=== PATIENT | male | born 1975 | race Two or more races ===

== ENCOUNTER 2025-01-25 19:53 | Inpatient (IN) | payer OTHER ==
[~2025-01-25] VITALS: Ht 170.2 cm; Wt 121.6 kg
[2025-01-25] MEDS: hydrALAZINE HCL 20 MG/ML VL IV ONE (21:06)
[2025-01-25 21:15] LABS: Basophils # (auto) 0.1 10 ^3/uL (0-0.2); Basophils % (auto) 0.9 % (0.0-2.0); Eosinophils # (auto) 0.3 10 ^3/uL (0-0.8); Eosinophils % (auto) 2.2 % (0.0-7.0); Hematocrit 44.8 % (41.0-53.0); Hemoglobin 14.9 g/dL (13.5-17.5); Lymphocytes # (auto) 2.4 10 ^3/uL (0.4-5.4); Lymphocytes % (auto) 16.4 % (10.0-50.0); Mean Corpuscular Hgb Conc. 33.3 g/dL (32.0-36.0); Mean Corpuscular Volume 84.1 fL (80.0-100.0); Monocytes # (auto) 1.2 10 ^3/uL (0-1.3); Monocytes % (auto) 7.8 % (0.0-12.0); Neutrophils # (auto) 10.8 10 ^3/uL (1.6-8.6); Neutrophils % (auto) 72.7 % (37.0-80.0); Platelet Count (auto) 276 10^3/uL (140-450); Red Blood Cells 5.33 10^6/uL (4.5-5.90); Red Cell Distribution Width 14.1 % (11.8-14.3); White Blood Cell 14.8 10^3/uL (4.4-10.8)
--- NOTE | 2025-01-25 21:17 | ED.PDOC ---
Musculoskeletal HPI Comments 49y M who presents to the ED for chief complaint of extremity pain. Pt states he has been having bilateral lower extremity swelling, shortness of breath and bloating for the past 1x week. Pt in the ED, has noted elevated blood pressure with noted bilateral lower extremity swelling. Pt in the ED, has noted BP of 180/77 and 199/118 on repeat measurement. Pt states he last saw PCP 1x year ago and had called to get refills of his HTN medications which he states ran out today. Pt did state he was complaint with his HTN meds. Pt otherwise is ax0x4 and denies any other symptoms at this time. Chief Complaint: Extremity Swelling Time Seen by MD: 21:13 Reviewed Notes: Medications, Allergies Allergies: Coded Allergies: Albuterol (Verified Allergy, Unknown, 01/25/25) Information Source: Patient Mode of Arrival: Ambulatory Brought in by: self Past Medical History PAST MEDICAL HISTORY: HTN Constitutional: denies: chills, diaphoresis, fatigue, fever, malaise, sweats, weakness, others EENTM: denies: blurred vision, double vision, ear bleeding, ear discharge, ear drainage, ear pain, ear ringing, eye pain, eye redness, hearing loss, mouth pain, mouth swelling, nasal discharge, nose bleeding, nose congestion, nose pain, photophobia, tearing, throat pain, throat swelling, voice changes, others Respiratory: reports: shortness of breath; denies: cough, hemoptysis, orthopnea, SOB at rest, SOB with excertion, stridor, wheezing, others Cardiovascular: denies: chest pain, dizzy spells, diaphoresis, Dyspnea on exertion, edema, irregular heart beat, left arm pain, lightheadedness, palpitations, PND, syncope, others Gastrointestinal: reports: abdomen distended; denies: abdominal pain, blood streaked bowels, constipated, diarrhea, dysphagia, difficulty swallowing, hematemesis, melena, nausea, poor appetite, poor fluid intake, rectal bleeding, rectal pain, vomiting, others Genitourinary: denies: burning, dysuria, flank pain, frequency, hematuria, incontinence, penile discharge, penile sore, pain, testicle pain, testicle swelling, urgency, others Neurological: denies: dizziness, fainting, headache, left sided numbness, left sided weakness, numbness, paresthesia, pre-existing deficit, right sided numbness, right sided weakness, seizure, speech problems, tingling, tremors, weakness, others Musculoskeletal: reports: others (lower extremity swelling); denies: back pain, gout, joint pain, joint swelling, muscle pain, muscle stiffness, neck pain Integumetry: denies: bruises, change in color, change in hair/nails, dryness, laceration, lesions, lumps, rash, wounds, others Allergic/Immunocompromised: denies: Difficulty Healing, Frequent Infections, H nazia, Itching, others Hematologic/Lymphatic: denies: anemia, blood clots, easy bleeding, easy bruising, swollen glands, others Endocrine: denies: excessive hunger, excessive sweating, excessive thirst, excessive urination, flushing, intolerance to cold, intolerance to heat, unexplained weight gain, unexplained weight loss, others Psychiatric: denies: anxiety, bipolar disorder, depression, hopeless, panic disorder, schizophrenia, sleepless, suicidal, others All Other Systems: Reviewed and Negative Physical Exam General Appearance: No Apparent Distress, Normal HEENT: Normal ENT Inspection, Pharynx Normal, TMs Normal Neck: Full Range of Motion, Non-Tender, Normal, Normal Inspection Respiratory: Chest Non-Tender, Lungs Clear, No Accessory Muscle Use, No Respiratory Distress, Normal Breath Sounds Cardiovascular: No Edema, No JVD, No Murmur, No Gallop, Normal Peripheral Pulses, Regular Rate/Rhythm Breast Exam: Deferred Gastrointestinal: Distended Genitalia: Deferred Pelvic: Deferred Rectal: Deferred Extremities: Pedal edema (bilateral lower extermity 2+ pitting edema) Musculoskeletal : Apperance: Normal Neurologic: Alert, order processing clerk II-XII nml as Tested, No Motor Deficits, Normal Affect, Normal Mood, No Sensory Deficits Cerebellar Function: Normal Reflexes: Normal Skin: Dry, Normal Color, Warm Lymphatic: No Adenopathy Was a procedure done? Was a procedure done?: No Differential Diagnosis EXT Differential Diagnosis: N/A Other Differential Diagnosis CHF, DVT, HTN urgency, X-Ray, Labs, Meds, VS Vital Signs Date Time Temp Pulse Resp B/P (MAP) Pulse Ox O2 Delivery O2 Flow Rate FiO2 01/25/25 22:06 97 01/25/25 21:06 199/119 01/25/25 20:20 97.8 104 18 180/117 (138) 100 97.8 Lab Test 01/25/25 22:31 01/25/25 21:04 Range/Units Troponin I High Sensitivity 444 *H 467 *H </=54 ng/L White Blood Count 14.8 H 4.4-10.8 10^3/uL Red Blood Count 5.33 4.5-5.90 10^6/uL Hemoglobin 14.9 13.5-17.5 g/dL Hematocrit 44.8 41.0-53.0 % Mean Corpuscular Volume 84.1 80.0-100.0 fL Mean Corpuscular Hemoglobin 28.0 28.0-32.0 pg Mean Corpuscular Hemoglobin Concent 33.3 32.0-36.0 g/dL Red Cell Distribution Width 14.1 11.8-14.3 % Platelet Count 276 140-450 10^3/uL Mean Platelet Volume 9.4 6.9-10.8 fL Neutrophils (%) (Auto) 72.7 37.0-80.0 % Lymphocytes (%) (Auto) 16.4 10.0-50.0 % Monocytes (%) (Auto) 7.8 0.0-12.0 % Eosinophils (%) (Auto) 2.2 0.0-7.0 % Basophils (%) (Auto) 0.9 0.0-2.0 % Neutrophils # (Auto) 10.8 H 1.6-8.6 10 ^3/uL Lymphocytes # (Auto) 2.4 0.4-5.4 10 ^3/uL Monocytes # (Auto) 1.2 0-1.3 10 ^3/uL Eosinophils # (Auto) 0.3 0-0.8 10 ^3/uL Basophils # (Auto) 0.1 0-0.2 10 ^3/uL Nucleated Red Blood Cells 0.0 % Sodium Level 142 136-145 mmol/L Potassium Level 3.5 3.5-5.1 mmol/L Chloride Level 105 98-107 mmol/L Carbon Dioxide Level 28 20-31 mmol/L Anion Gap 9 5-15 Blood Urea Nitrogen 13 9-23 mg/dL Creatinine 1.37 H 0.700-1.30 mg/dL Glomerular Filtration Rate Calc 63 >90 mL/min BUN/Creatinine Ratio 9.5 L 10.0-20.0 Serum Glucose 173 H 74-106 mg/dL Calcium Level 9.7 8.7-10.4 mg/dL B-Type Natriuretic Peptide 908.92 0-100 pg/mL Current Medications Medications (Trade) Dose Ordered Sig/Alba Route Start Time Stop Time Status Last Admin Hydralazine HCl (Apresoline Injection) 15 mg ONCE ONCE IV 01/25/25 20:45 01/25/25 20:46 DC 01/25/25 21:06 [place] [id number] Ph: [phone] DIAGNOSTIC IMAGING Diagnostic Imaging Report : [id number] Signed PATIENT: ROULA RAIN ACCT: [id number] UNIT: [id number] : 1975 LOC: ER ROOM / BED: / AGE / SEX: 49 / M ADM STATUS: REG ER SERVICE 32 ORDERING PHYSICIAN: DONYA FAM PROCEDURE(s): CXR1 - CHEST XRAY 1 VIEW REASON: sob ORDER NUMBER(s): [id number], ACCESSION NUMBER(s): [id number] CHEST RADIOGRAPH Indication: sob Technique: Single frontal view of the chest was obtained Comparison: None FINDINGS: Lines and Tubes: None Lungs: Increased bronchovascular markings in both lung bases. may represent chronic disease developing infiltrate. Pleura: No effusion. No pneumothorax. Cardiomediastinal contours: Cardiomegaly Bones: No acute osseous abnormality. IMPRESSION: 1. Prominent pulmonary vascular congestion in the perihilar areas and both lung bases. HS:Y ATED BY: BEBETO ROSALES Jr., DO DICTATED DATE/TIME: 01/25/252137 SIGNED BY: BEBETO ROSALES Jr., SIGNED DATE/TIME: 01/25/252137 CC: X-Ray, Labs, Meds, VS Comment Imaging: X-rays and CT scans were reviewed and interpreted by this provider, chest x-ray showsIMPRESSION: 1. Prominent pulmonary vascular congestion in the perihilar areas and both lung bases. HS:Y Laboratory: Labs reviewed and interpreted by this provider. Patient has a elevated troponins and elevated BNP Patient will be admitted for elevated troponins Patient will be admitted for CHF Patient will be admitted for hypertensive urgency Patient will be given Lasix 20 mg IV , aspirin, Lovenox Patient has prior medical visits reviewed. Med reconciliation performed Vital signs reviewed Time of 1ST Reevaluation: 21:45 Reevaluation 1ST: Unchanged Patient Education/Counseling: Diagnosis, Treatment Family Education/Counseling: No Family Present Departure 1 Departure Time of Disposition: 23:39 Impression: Primary Impression: Elevated troponin Additional Impressions: Peripheral edema CHF (congestive heart failure) Qualified Codes: I50.21 - Acute systolic (congestive) heart failure Shortness of breath Hypertensive urgency Disposition: ADMITTED INPATIENT Condition: Fair Discharged With: Self Critical Care Note Critical Care Time?: No Stability Stability form required: No Heart Score Heart Score: Heart Score Response (Comments) Value History Slightly Suspicious 0 EKG Normal 0 Age 45-64 1 Risk Factors No known risk factors 0 Troponin >3 x's Normal limit 2 Total 3 I personally scribed for DONYA FAM (MITCHEL) on 01/25/25 at 21:17. Electronically submitted by Yonis Domínguez (ANN MARIE). I personally scribed for DONYA FAM (MITCHEL) on 01/25/25 at 22:05. Electronically submitted by Yonis BUTLER). DONYA FAM Jan 25, 2025 21:17
[2025-01-25 21:25] LABS: Chloride 105 mmol/L (98-107); Sodium 142 mmol/L (136-145)
[2025-01-25 21:26] LABS: Anion Gap 9 (5-15); Calcium 9.7 mg/dL (8.7-10.4); Carbon Dioxide 28 mmol/L (20-31)
[2025-01-25 21:31] LABS: BUN/Creatinine Ratio 9.5 (10.0-20.0); Blood Urea Nitrogen 13 mg/dL (9-23)
[2025-01-25 21:38] LABS: Glucose 173 mg/dL (74-106); Potassium 3.5 mmol/L (3.5-5.1)
--- NOTE | 2025-01-25 21:41 | DVH ---
CHEST RADIOGRAPH Indication: sob Technique: Single frontal view of the chest was obtained Comparison: None FINDINGS: Lines and Tubes: None Lungs: Increased bronchovascular markings in both lung bases. may represent chronic disease developi ng infiltrate. Pleura: No effusion. No pneumothorax. Cardiomediastinal contours: Cardiomegaly Bones: No acute osseous abnormality. IMPRESSION: 1. Prominent pulmonary vascular congestion in the perihilar areas and both lung bases. HS:Y
[2025-01-26] VITALS (9 sets, daily range): BP systolic 141–163; BP diastolic 91–104; PULSE 70–93; RESP 17–22; TEMP 97.8–98.5; O2SAT 93–98
[2025-01-26] MEDS: ENOXAPARIN SOD 100 MG/1 ML SYRINGE SC ONE (00:23)
[2025-01-26] MEDS: LABETALOL HCL 20 MG/4 ML VL IV ONE (00:24)
[2025-01-26] MEDS ORDERED: MORPHINE SULFATE INJ 2 MG/ml SYRG IV PRN (01:00)
[2025-01-26] MEDS ORDERED: NITROGLYCERIN 0.4 MG SL TAB SL PRN (01:00)
[2025-01-26] MEDS ORDERED: DEXTROSE (50%) 50ML SYRG IV PRN (01:00)
[2025-01-26] MEDS ORDERED: ONDANSETRON HCL 4 MG/2 ML VIAL IV PRN (01:00)
[2025-01-26] MEDS: cloNIDine HCL 0.1 MG TAB PO ONE (02:32)
--- NOTE | 2025-01-26 04:17 | DVHHP2 ---
History of Present Illness Reason for Visit: Shortness for breath History of Present Illness 49-year-old male presents for evaluation of shortness for breath. Patient endorses two day history of worsening shortness for breath with associated chest pressure, abdominal distention and lower extremity swelling. Denies cough or fe bud. No other acute complaints reported. Past Medical History Hypertension, diabetes mellitus, BPH, CHF Past Surgical History Denies Family History Noncontributory Smoke: No ALCOHOL: none Drugs: None Lives: with Family Review of Systems Review of Systems Review of systems are currently negative otherwise addressed in HPI. Allergies: Coded Allergies: Albuterol (Verified Allergy, Unknown, 01/25/25) Medications Current Medications Medications Dose Ordered Sig/Alba Route Start Time Stop Time Status Last Admin Dose Admin Amlodipine Besylate 10 mg DAILY PO 01/26/25 10:00 Carvedilol 6.25 mg Q12HR PO 01/26/25 10:00 Hydralazine HCl 10 mg Q6HP PRN IV 01/26/25 01:00 Atorvastatin Calcium 20 mg HS PO 01/26/25 22:00 Diagnostic Test (Pha) 1 strip ACHS 01/26/25 07:00 Insulin Human Regular ACHS SC 01/26/25 07:00 Dextrose 50 ml UD PRN IV 01/26/25 01:00 Ondansetron HCl 4 mg Q4HP PRN IV 01/26/25 01:00 Acetaminophen 650 mg Q6HP PRN PO 01/26/25 01:00 Nitroglycerin 0.4 mg Q5MINP PRN SL 01/26/25 01:00 Morphine Sulfate 2 mg Q30M PRN IV 01/26/25 01:00 Aspirin 162 mg DAILY PO 01/26/25 10:00 Furosemide 40 mg BIDD IV 01/26/25 06:00 Exam Vital Signs Vital Signs Date Time Temp Pulse Resp B/P (MAP) Pulse Ox O2 Delivery O2 Flow Rate FiO2 01/26/25 04:09 138/69 01/26/25 02:15 76 01/26/25 02:00 90 01/26/25 00:43 17 Room Air* 0 21 01/26/25 00:00 98.8 98.8 Exam Gen: 49-year-old male in mild distress, morbidly obese Skin: Warm, dry, normal color and texture, no rash. HEENT: Normocephalic atraumatic, mucous membranes moist and pink. Neck: Cervical and supraclavicular nodes normal without enlargement, trachea is midline, thyroid gland is normal without masses. Pulmonary: Clear to auscultation and percussion bilaterally. Cardiac: Regular rate and rhythm. No murmur Abdomen: Soft, nontender, distention, bowel sounds present all 4 quadrants, no guarding, no rigidity, no organomegaly. Extremities: No cyanosis, clubbing, to bilateral pedal edema Neuro: Cranial nerves II through XII grossly intact, normal affect and speech, no focal motor deficits. Labs/Xrays ORDERING PHYSICIAN: DONYA FAM PROCEDURE(s): CXR1 - CHEST XRAY 1 VIEW REASON: sob ORDER NUMBER(s): [id number], ACCESSION NUMBER(s): [id number] CHEST RADIOGRAPH Indication: sob Technique: Single frontal view of the chest was obtained Comparison: None FINDINGS: Lines and Tubes: None Lungs: Increased bronchovascular markings in both lung bases. may represent chronic disease developing infiltrate. Pleura: No effusion. No pneumothorax. Cardiomediastinal contours: Cardiomegaly Bones: No acute osseous abnormality. IMPRESSION: 1. Prominent pulmonary vascular congestion in the perihilar areas and both lung bases. HS:Y Labs Test 01/26/25 00:05 01/25/25 21:04 Range/Units Troponin I High Sensitivity 475 *H </=54 ng/L White Blood Count 14.8 H 4.4-10.8 10^3/uL Red Blood Count 5.33 4.5-5.90 10^6/uL Hemoglobin 14.9 13.5-17.5 g/dL Hematocrit 44.8 41.0-53.0 % Mean Corpuscular Volume 84.1 80.0-100.0 fL Mean Corpuscular Hemoglobin 28.0 28.0-32.0 pg Mean Corpuscular Hemoglobin Concent 33.3 32.0-36.0 g/dL Red Cell Distribution Width 14.1 11.8-14.3 % Platelet Count 276 140-450 10^3/uL Mean Platelet Volume 9.4 6.9-10.8 fL Neutrophils (%) (Auto) 72.7 37.0-80.0 % Lymphocytes (%) (Auto) 16.4 10.0-50.0 % Monocytes (%) (Auto) 7.8 0.0-12.0 % Eosinophils (%) (Auto) 2.2 0.0-7.0 % Basophils (%) (Auto) 0.9 0.0-2.0 % Neutrophils # (Auto) 10.8 H 1.6-8.6 10 ^3/uL Lymphocytes # (Auto) 2.4 0.4-5.4 10 ^3/uL Monocytes # (Auto) 1.2 0-1.3 10 ^3/uL Eosinophils # (Auto) 0.3 0-0.8 10 ^3/uL Basophils # (Auto) 0.1 0-0.2 10 ^3/uL Nucleated Red Blood Cells 0.0 % Sodium Level 142 136-145 mmol/L Potassium Level 3.5 3.5-5.1 mmol/L Chloride Level 105 98-107 mmol/L Carbon Dioxide Level 28 20-31 mmol/L Anion Gap 9 5-15 Blood Urea Nitrogen 13 9-23 mg/dL Creatinine 1.37 H 0.700-1.30 mg/dL Glomerular Filtration Rate Calc 63 >90 mL/min BUN/Creatinine Ratio 9.5 L 10.0-20.0 Serum Glucose 173 H 74-106 mg/dL Calcium Level 9.7 8.7-10.4 mg/dL B-Type Natriuretic Peptide 908.92 0-100 pg/mL Assessment/Plan Assessment/Plan Assessment Acute on chronic congestive heart failure Accelerated hypertension Diabetes mellitus Morbid obesity Plan Admit the patient to telemetry to the hospitalist PAPI Villanueva Resume home medications Continue treatment per orders. Plan discussed with: Patient My Orders Orders - CESAR MCPHERSON AGACNP Procedure Category Date Status Time Amlodipine Tablet PHA 01/26/25 In Process (Norvasc Tablet) 10:00 Carvedilol Tablet PHA 01/26/25 In Process (Coreg Tablet) 10:00 Hydralazine Injection PHA 01/26/25 In Process (Apresoline Inject 01:00 Atorvastatin (Lipitor) PHA 01/26/25 In Process 22:00 * Cardiology Consult CONS 01/26/25 Transmitted 00:54 Glucose Blood PHA 01/26/25 In Process (Accu-Chek Comfort 07:00 Insulin R (Human) PHA 01/26/25 In Process (Insulin R) 07:00 Dextrose 50% Syringe PHA 01/26/25 In Process 01:00 Admit ADMIT 01/26/25 Transmitted 00:54 Ondansetron Hcl PHA 01/26/25 In Process (Zofran) 01:00 Complete Blood Count LAB 01/27/25 Verified 04:00 Comprehensive LAB 01/27/25 Verified Metabolic Panel 04:00 Cardiac DIET 01/26/25 Transmitted Diet-2gna,Lofat,Lochol Breakfast Echo 2d Mode Cardiac US 01/26/25 Logged DOP 00:54 Condition: Fair RACHELLE 01/26/25 In Process 00:54 Acetaminophen Tablet PHA 01/26/25 In Process (Tylenol Tablet) 01:00 Bedrest With Bathroom [facility] 01/26/25 In Process Privileg 00:54 Nitroglycerin [facility] 01/26/25 In Process Sublingual (Ntrostat 01:00 Morphine Sulfate PHA 01/26/25 In Process Injection 01:00 Stat Ekg For Chest [facility] 01/26/25 In Process Pain 00:54 Notify Md Of Changes [facility] 01/26/25 In Process From Base 00:54 Supervisor Assembly [employer] Packing For [facility] 01/26/25 In Process 24 Hours 00:54 Emergency Dysrhythmia [facility] 01/26/25 In Process Protocol 00:54 Rhythm Strips Once [facility] 01/26/25 In Process Every Shift 00:54 Oxygen By Nasal RT 01/26/25 Transmitted Cannula 00:54 Aspirin Tablet PHA 01/26/25 In Process 10:00 Furosemide Injection [facility] 01/26/25 In Process (Lasix Injection) 06:00 Hydrocodone-Acet PHA 01/26/25 Transmitted 5/325mg Tab ([place] 04:15 Abdomen Limited US 01/26/25 Transmitted 04:13 Date of Service: Jan 26, 2025 Billing Provider: CESAR MCPHERSON Common Visit Codes: [id number] INP/OBS CARE (HIGH) CESAR MCPHERSON Jan 26, 2025 04:17
[2025-01-26] MEDS ORDERED: FOSI40TA PO (04:32)
[2025-01-26] MEDS ORDERED: AMLO1TAB23 PO (04:32)
[2025-01-26] MEDS ORDERED: METF-370 PO (04:32)
[2025-01-26] MEDS ORDERED: ROSU10TA64 PO (04:32)
[2025-01-26] MEDS ORDERED: DAPA1TAB4 PO (04:32)
[2025-01-26] MEDS ORDERED: DOXA4TAB83 PO (04:32)
[2025-01-26 04:38] LABS: LDL Cholesterol 49 mg/dL (< 100); Triglycerides 120 mg/dL (< 150)
[2025-01-26 04:40] LABS: Cholesterol 107 mg/dL (< 200); HDL Cholesterol 41 mg/dL (40-59)
[2025-01-26] MEDS: ACCU-CHEK COMFORT CURVE STRIP VI SCH (07:03)
[2025-01-26] MEDS: FUROSEMIDE 40 MG/4 ML VIAL IV SCH (07:15)
[2025-01-26] MEDS: InsuLIN REG 1unit/0.01ml Soln (100units/ml) SC SCH (07:16)
[2025-01-26] MEDS: HYDROcodone-ACET 5/325MG TAB PO ONE (07:56)
--- NOTE | 2025-01-26 09:39 | DVHINCON2 ---
Date Seen: Jan 26, 2025 Referring Physician CHUY Archer Reason for Consultation CHF History of Present Illness This is a 49-year-old male patient who presents to emergency room with chief complaint of worsening shortness of breath and bilateral lower extremity edema for approximately one week. Cardiology has been consulted at this time for further evaluation. Initial twelve lead electrocardiogram reveals an ectopic atrial rhythm with diffuse ST segment changes. Initial troponin level of 467ng/L with flat trend thereafter. The patient denies any chest pain. Significant past medical history includes congestive heart failure, hypertension, hyperlipidemia, type 2 diabetes mellitus, and morbid obesity. The patient reports he has been told in the past that he has a "weak heart". 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 The patient also reports running out of medications. Of note, he came in with a blood pressure reaching as high as 199/119. Past Medical History Past medical history reviewed. No other significant than mentioned above. Past Surgical History Denies any previous surgeries Family History: Diabetes mellitus G8 FATHER Hypertension G8 FATHER Family History Family history reviewed. Social History Denies the use of tobacco, alcohol or illicit drugs. Allergies: Coded Allergies: Albuterol (Verified Allergy, Unknown, 01/25/25) Home Meds Reported Medications Furosemide (Furosemide) 20 Mg Tab, 20 MG PO DAILY for 30 Days, MG 01/26/25 Fosinopril Sodium (Fosinopril Sodium) 40 Mg Tab, 40 MG PO, TAB 01/26/25 Dapagliflozin Propanediol (Farxiga) 10 Mg Tab, 10 MG PO, TAB 01/26/25 Amlodipine Besylate (Amlodipine Besylate) 10 Mg Tab, 1 TAB PO DAILY, #30 TAB 5 Refills 01/26/25 Doxazosin Mesylate (Doxazosin Mesylate) 4 Mg Tab, 1 TAB PO DAILY, #30 TAB 5 Refills 01/26/25 Rosuvastatin Calcium (Rosuvastatin Calcium) 10 Mg Tab, 10 MG PO, TAB 01/26/25 Metformin Hydrochloride (Metformin Hcl) 500 Mg Tab, 1 TAB PO BID, #60 TAB 3 Refills 01/26/25 Home Meds Home medications reviewed. Current Medications Current Medications Medications (Trade) Dose Ordered Sig/Alba Route PRN Reason Start Time Stop Time Status Last Admin Amlodipine Besylate (Norvasc Tablet) 10 mg DAILY PO 01/26/25 10:00 Carvedilol (Coreg Tablet) 6.25 mg Q12HR PO 01/26/25 10:00 Hydralazine HCl (Apresoline Injection) 10 mg Q6HP PRN IV SBP>150 01/26/25 01:00 Atorvastatin Calcium (Lipitor) 20 mg HS PO 01/26/25 22:00 Diagnostic Test (Pha) (Accu-Chek Comfort Curve T) 1 strip ACHS 01/26/25 07:00 01/26/25 07:03 Insulin Human Regular (InsuLIN R) ACHS SC 01/26/25 07:00 01/26/25 07:16 Dextrose 50 ml UD PRN IV Blood Sugar LESS THAN 60 01/26/25 01:00 Ondansetron HCl (Zofran) 4 mg Q4HP PRN IV NAUSEA / VOMITING 01/26/25 01:00 Acetaminophen (Tylenol Tablet) 650 mg Q6HP PRN PO PAIN SCALE 1-3 OR TEMP>100.4 01/26/25 01:00 Nitroglycerin (Ntrostat Sublingual) 0.4 mg Q5MINP PRN SL FOR CHEST PAIN 01/26/25 01:00 Morphine Sulfate 2 mg Q30M PRN IV FOR CHEST PAIN 01/26/25 01:00 Aspirin 162 mg DAILY PO 01/26/25 10:00 01/26/25 09:20 DC Furosemide (Lasix Injection) 40 mg BIDD IV 01/26/25 06:00 01/26/25 07:15 Aspirin 81 mg DAILY PO 01/26/25 10:00 Review of Systems Constitutional: No symptom reported Ears, Nose, & Throat: No symptom reported Eyes: No symptom reported Neurological: No symptoms reported Pulmonary/Respiratory: Shortness of breath Cardiovascular: No symptom reported Gastrointestinal: No symptom reported Genitourinary: No symptom reported Musculoskeletal: No symptom reported Skin: No symptom reported Psychiatric: No symptom reported Endocrine: No symptom reported Hematologic/Lymphatic: No symptom reported Vital Signs Vital Signs Date Time Temp Pulse Resp B/P (MAP) Pulse Ox O2 Delivery O2 Flow Rate FiO2 01/26/25 08:00 78 01/26/25 07:30 98.5 20 130/79 (96) 96 98.5 01/26/25 07:30 Nasal Cannula* 2 28 Physical Exam General Appearance: Cooperative. Morbid obesity Pulmonary/Respiratory: Diminished bilateral lower lobes Cardiovascular/Chest: Regular rate and rhythm. Peripheral Pulses: 2+ Radial (R). 2+ Radial (L). 1+ Pedal (R). 1+ Pedal (L) Abdominal Exam: Normal bowel sounds. Ankle Exam: 3+ pitting edema Lower extremities: 3+ pitting edema Neuro/Mental Status: A/OX4, coherent. Thoughts/Psych: Normal thought pattern. Appropriate mood and affect. Good judgment and insight. Appearance: No acute distress. Skin Exam: Normal inspection. Normal color. Warm and dry. Labs/Diagnostic Data Labs Test 01/26/25 00:05 01/25/25 21:04 Range/Units Troponin I High Sensitivity 475 *H </=54 ng/L Triglycerides Level 120 < 150 mg/dL Cholesterol Level 107 < 200 mg/dL LDL Cholesterol 49 < 100 mg/dL HDL Cholesterol 41 40-59 mg/dL Thyroid Stimulating Hormone (TSH) 0.94 0.55-4.78 uIU/mL White Blood Count 14.8 H 4.4-10.8 10^3/uL Red Blood Count 5.33 4.5-5.90 10^6/uL Hemoglobin 14.9 13.5-17.5 g/dL Hematocrit 44.8 41.0-53.0 % Mean Corpuscular Volume 84.1 80.0-100.0 fL Mean Corpuscular Hemoglobin 28.0 28.0-32.0 pg Mean Corpuscular Hemoglobin Concent 33.3 32.0-36.0 g/dL Red Cell Distribution Width 14.1 11.8-14.3 % Platelet Count 276 140-450 10^3/uL Mean Platelet Volume 9.4 6.9-10.8 fL Neutrophils (%) (Auto) 72.7 37.0-80.0 % Lymphocytes (%) (Auto) 16.4 10.0-50.0 % Monocytes (%) (Auto) 7.8 0.0-12.0 % Eosinophils (%) (Auto) 2.2 0.0-7.0 % Basophils (%) (Auto) 0.9 0.0-2.0 % Neutrophils # (Auto) 10.8 H 1.6-8.6 10 ^3/uL Lymphocytes # (Auto) 2.4 0.4-5.4 10 ^3/uL Monocytes # (Auto) 1.2 0-1.3 10 ^3/uL Eosinophils # (Auto) 0.3 0-0.8 10 ^3/uL Basophils # (Auto) 0.1 0-0.2 10 ^3/uL Nucleated Red Blood Cells 0.0 % Sodium Level 142 136-145 mmol/L Potassium Level 3.5 3.5-5.1 mmol/L Chloride Level 105 98-107 mmol/L Carbon Dioxide Level 28 20-31 mmol/L Anion Gap 9 5-15 Blood Urea Nitrogen 13 9-23 mg/dL Creatinine 1.37 H 0.700-1.30 mg/dL Glomerular Filtration Rate Calc 63 >90 mL/min BUN/Creatinine Ratio 9.5 L 10.0-20.0 Serum Glucose 173 H 74-106 mg/dL Hemoglobin A1c 8.3 H <5.7 % A1C Calcium Level 9.7 8.7-10.4 mg/dL B-Type Natriuretic Peptide 908.92 0-100 pg/mL Assessment Rule out structural heart disease Hypertensive urgency, resolved NSTEMI, likely type II secondary to above Hyperlipidemia Acute kidney injury Type 2 diabetes mellitus, uncontrolled (Hgb A1c 8.3%) Morbid obesity Medical noncompliance Plan/Recommendation We will continue with the following plan/recommendations (Dr. Kong): * Transthoracic echocardiogram to evaluate cardiac function * Strict intake and output, daily weight, maintain fluid restriction * Aggressive BP control as tolerated * Close Cardiac surveillance * Risk factor modifications, counseled * Adherence to medication regimen * Dietary and lifestyle changes Thank you for allowing us to care for this patient. Please call with any questions or concerns. Critical care time spent: 44 minutes This medical document was created using an electronic medical record system with voice recognition software and computerized dictation system. Although this document has been carefully reviewed, there might still be some phonetic and typographical errors. Occasional wrong-word or ``sound-alike substitutions may have occurred due to the inherent limitations of voice recognition software. These areas are purely typographical due to imperfections of the software programs and do not reflect any compromise in the patient's medical care. Please read the chart carefully and recognize, using context, where these substitutions have occurred. Plan discussed with: Patient NYHA Physical activity limitations: NA Date of Service: Jan 26, 2025 Billing Provider: MARIA E ALMONTE Cardiology Common Codes: 68869-[id number] INP/OBS CARE (High) Cardiology Consultation Codes: [id number] CONSULT <45MIN MARIA E ALMONTE Jan 26, 2025 09:39
[2025-01-26] MEDS ORDERED: ASPirin 81 mg TAB PO SCH (10:00)
[2025-01-26] MEDS: amLODIPine BESYLATE 5 MG TAB PO SCH (10:12)
[2025-01-26] MEDS: CARVEDILOL 3.125 MG TAB PO SCH (10:12)
[2025-01-26] MEDS: ASPirin 81 mg TAB PO SCH (10:13)
[2025-01-26] MEDS: hydrALAZINE HCL 20 MG/ML VL IV PRN (10:51)
[2025-01-26] MEDS ORDERED: FURO20TA3 PO (11:17)
[2025-01-26 11:41] LABS: Urine Bacteria None Seen /hpf (None Seen)
[2025-01-26 11:54] LABS: Urine Blood Negative /uL (Negative); Urine Clarity Clear (Clear); Urine Color Light-Yellow (Yellow); Urine Hyaline Cast FEW /lpf (0 - 2); Urine Mucus FEW (None Seen); Urine Protein, UAD 1+ (Negative); Urine Specific Gravity 1.008 (1.001-1.035); Urine Squamous Epithelial Cell FEW /hpf (<5); Urine Urobilinogen Normal (Negative); Urine WBC 1 /HPF (0-3); Urine pH 5.5 (5.0-9.0)
[2025-01-26 12:06] LABS: Amphetamine Screen, Urine Neg (NEGATIVE); Barbiturate Scree,Urine Neg (NEGATIVE); Benzodiazephine Screen, Urine Neg (NEGATIVE); Cannabinoid Screen, Urine Neg (NEGATIVE); Cocaine Screen, Urine Neg (NEGATIVE); Opiate Scree,Urine Neg (NEGATIVE); Phencyclidine Screen, Urine Neg (NEGATIVE)
--- NOTE | 2025-01-26 14:53 | DVHPN2 ---
Subjective Seen and examined at bedside, patient is still very short of breath. Currently on 3-4L of oxygen. Patient reports he was diagnosed with CHF few years ago but never had an Ischemic workup. Changes from previous H/P or p: No Changes Objective Vitals Vital Signs Date Time Temp Pulse Resp B/P (MAP) Pulse Ox O2 Delivery O2 Flow Rate FiO2 01/26/25 13:00 97.8 74 20 154/100 (118) 96 97.8 01/26/25 10:36 Nasal Cannula* 2 28 General Appearance: Alert, Oriented X3, Cooperative, mild distress Lungs: Other (Diminished) Cardiovascular: Regular rate, Normal S1, Normal S2 Abdomen: Normal bowel sounds, Other (Obese) Rectal: Deferred Extremities: Other (Edema) Psych/Mental Status: Mental status NL Medications Current Medications Medications Dose Ordered Sig/Alba Route Start Time Stop Time Status Last Admin Dose Admin Amlodipine Besylate 10 mg DAILY PO 01/26/25 10:00 01/26/25 10:12 10 MG Carvedilol 6.25 mg Q12HR PO 01/26/25 10:00 01/26/25 10:12 6.25 MG Hydralazine HCl 10 mg Q6HP PRN IV 01/26/25 01:00 01/26/25 10:51 10 MG Atorvastatin Calcium 20 mg HS PO 01/26/25 22:00 Diagnostic Test (Pha) 1 strip ACHS 01/26/25 07:00 01/26/25 12:31 1 STRIP Insulin Human Regular ACHS SC 01/26/25 07:00 01/26/25 12:31 3 UNITS Dextrose 50 ml UD PRN IV 01/26/25 01:00 Ondansetron HCl 4 mg Q4HP PRN IV 01/26/25 01:00 Acetaminophen 650 mg Q6HP PRN PO 01/26/25 01:00 Nitroglycerin 0.4 mg Q5MINP PRN SL 01/26/25 01:00 Morphine Sulfate 2 mg Q30M PRN IV 01/26/25 01:00 Furosemide 40 mg BIDD IV 01/26/25 06:00 01/26/25 07:15 40 MG Aspirin 81 mg DAILY PO 01/26/25 10:00 01/26/25 10:13 81 MG Laboratory Results Laboratory Tests 01/25/25 21:04 Chemistry Test 01/25/25 21:04 01/26/25 00:05 Calcium Level 9.7 mg/dL (8.7-10.4) Magnesium Level 1.9 mg/dL (1.6-2.6) Lipid panel Test 01/26/25 00:05 Cholesterol Level 107 mg/dL (< 200) HDL Cholesterol 41 mg/dL (40-59) Triglycerides Level 120 mg/dL (< 150) Cardiac Markers Test 01/25/25 21:04 B-Type Natriuretic Peptide 908.92 pg/mL (0-100) HgA1c, TSH Test 01/25/25 21:04 01/26/25 00:05 Hemoglobin A1c 8.3 % A1C (<5.7) H Thyroid Stimulating Hormone (TSH) 0.94 uIU/mL (0.55-4.78) Urinalysis Test 01/26/25 11:28 Urine Color Light-yellow (Yellow) Urine Clarity Clear (Clear) Urine pH 5.5 (5.0-9.0) Urine Specific [place] 1.008 (1.001-1.035) Urine Protein 1+ (Negative) H Urine Ketones Negative (Negative) Urine Blood Negative /uL (Negative) Urine Nitrite Negative (Negative) Urine Bilirubin Negative (Negative) Urine Urobilinogen Normal mg/dL (Negative) Urine Leukocyte Esterase Negative /uL (Negative) Urine RBC <1 /hpf (0 - 3) Urine Microscopic WBC 1 /HPF (0-3) Urine Squamous Epithelial Cells Few /hpf (<5) Urine Bacteria None seen /hpf (None Seen) Urine Hyaline Casts Few /lpf (0 - 2) Urine Mucus Few (None Seen) Urine Glucose Normal mg/dL (Normal) Assessment/Plan Assessment/Plan NSTEMI-II- Cardio Cx Acute Systolic CHF Exacerbation- Lasix Acute Resp Failure- Titrate oxygen down Hypertensive urgency- Monitor and adjust meds as needed Hyperlipidemia- Statins Acute kidney injury due to ???- Monitor Type 2 diabetes mellitus, uncontrolled (Hgb A1c 8.3%) 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
[2025-01-26] MEDS: ATORVASTATIN 20 MG TAB PO SCH (22:12)
[2025-01-26] MEDS: SACUBITRIL-VALSARTAN 24mg/26mg TAB PO SCH (22:12)
[2025-01-27] VITALS (8 sets, daily range): BP systolic 143–161; BP diastolic 94–105; PULSE 72–86; RESP 17–20; TEMP 98–98.5; O2SAT 95–98
[2025-01-27 06:49] LABS: Basophils # (auto) 0.1 10 ^3/uL (0-0.2); Basophils % (auto) 0.7 % (0.0-2.0); Eosinophils # (auto) 0.3 10 ^3/uL (0-0.8); Eosinophils % (auto) 2.3 % (0.0-7.0); Hematocrit 43.5 % (41.0-53.0); Hemoglobin 14.7 g/dL (13.5-17.5); Lymphocytes # (auto) 1.6 10 ^3/uL (0.4-5.4); Lymphocytes % (auto) 10.6 % (10.0-50.0); Mean Corpuscular Hemoglobin 28.4 pg (28.0-32.0); Mean Corpuscular Hgb Conc. 33.7 g/dL (32.0-36.0); Mean Corpuscular Volume 84.4 fL (80.0-100.0); Monocytes # (auto) 1.5 10 ^3/uL (0-1.3); Monocytes % (auto) 9.5 % (0.0-12.0); Neutrophils # (auto) 11.8 10 ^3/uL (1.6-8.6); Neutrophils % (auto) 76.9 % (37.0-80.0); Platelet Count (auto) 262 10^3/uL (140-450); Red Blood Cells 5.15 10^6/uL (4.5-5.90); Red Cell Distribution Width 14.4 % (11.8-14.3); White Blood Cell 15.3 10^3/uL (4.4-10.8)
[2025-01-27 07:01] LABS: Alanine Aminotransferase 12 U/L (7-40); Alkaline Phosphatase 64 U/L (46-116); Anion Gap 11 (5-15); BUN/Creatinine Ratio 9.5 (10.0-20.0); Blood Urea Nitrogen 11 mg/dL (9-23); Calcium 9.6 mg/dL (8.7-10.4); Carbon Dioxide 30 mmol/L (20-31); Chloride 101 mmol/L (98-107); Sodium 142 mmol/L (136-145); Total Protein 7.1 g/dL (5.7-8.2)
[2025-01-27 07:02] LABS: Albumin 4.2 g/dL (3.2-4.8); Aspartate Aminotransferase 15 U/L (<34)
[2025-01-27 07:03] LABS: Bilirubin, Total 1.5 mg/dL (0.2-1.0); Glucose 125 mg/dL (74-106)
[2025-01-27] MEDS: POTASSIUM CHL 20 Meq TABLET PO ONE (13:23)
--- NOTE | 2025-01-27 14:17 | ECG ---
[facility] Test Date: 2025-01-25 Test Time: 22:06:19 Pat Name: ROULA RAIN Department: ED Room: 0214T B Gender: M Director Of Casework: EDILSON : 1975 Requested By: DONYA FAM Order Number: [id number] Reading MD: Paresh Kong Measurements Intervals [place] Rate: 97 P: -69 [place]: 143 QRS: 127 QRSD: 133 T: 32 QT: 383 QTc: 487 Interpretive Statements Ectopic atrial rhythm Nonspecific intraventricular conduction delay ST elevation, consider anterolateral injury Electronically Signed On 01-28-2025 21:16:02 PDT by Paresh Kong Please click the below link to view image of tracing.
--- NOTE | 2025-01-27 16:43 | DVHPN2 ---
Subjective Seen and examined at bedside, On 3L oxygen. Adjust BP meds. Changes from previous H/P or p: No Changes Objective Vitals Vital Signs Date Time Temp Pulse Resp B/P (MAP) Pulse Ox O2 Delivery O2 Flow Rate FiO2 01/27/25 14:29 161/99 01/27/25 14:19 98.2 72 17 98 98.2 01/27/25 08:00 Nasal Cannula* 2 28 Intake/Output Intake and Output 01/27/25 07:00 Intake Total 740 ml Output Total 1200 ml Balance -460 ml Intake Oral 740 ml Output Urine Total 1200 ml # Voids 1 General Appearance: Alert, Oriented X3, Cooperative, mild distress Lungs: Other (Diminished) Cardiovascular: Regular rate, Normal S1, Normal S2 Abdomen: Normal bowel sounds, Other (Obese) Rectal: Deferred Extremities: Other (Edema) Psych/Mental Status: Mental status NL Medications Current Medications Medications Dose Ordered Sig/Alba Route Start Time Stop Time Status Last Admin Dose Admin Carvedilol 6.25 mg Q12HR PO 01/26/25 10:00 01/27/25 08:56 6.25 MG Hydralazine HCl 10 mg Q6HP PRN IV 01/26/25 01:00 01/27/25 14:29 10 MG Atorvastatin Calcium 20 mg HS PO 01/26/25 22:00 01/26/25 22:12 20 MG Diagnostic Test (Pha) 1 strip ACHS 01/26/25 07:00 01/27/25 13:23 1 STRIP Insulin Human Regular ACHS SC 01/26/25 07:00 01/27/25 13:28 4 UNITS Dextrose 50 ml UD PRN IV 01/26/25 01:00 Ondansetron HCl 4 mg Q4HP PRN IV 01/26/25 01:00 Acetaminophen 650 mg Q6HP PRN PO 01/26/25 01:00 Nitroglycerin 0.4 mg Q5MINP PRN SL 01/26/25 01:00 Morphine Sulfate 2 mg Q30M PRN IV 01/26/25 01:00 Furosemide 40 mg BIDD IV 01/26/25 06:00 01/27/25 05:06 40 MG Aspirin 81 mg DAILY PO 01/26/25 10:00 01/27/25 08:56 81 MG Sacubitril/ Valsartan 1 tab BID PO 01/26/25 22:00 01/27/25 08:56 1 TAB Laboratory Results Laboratory Tests 01/27/25 05:34 Chemistry Test 01/27/25 05:34 Albumin 4.2 g/dL (3.2-4.8) Calcium Level 9.6 mg/dL (8.7-10.4) Total Protein 7.1 g/dL (5.7-8.2) LFT Test 01/27/25 05:34 Alanine Aminotransferase (ALT) 12 U/L (7-40) Alkaline Phosphatase 64 U/L (46-116) Aspartate Amino Transferase (AST) 15 U/L (<34) Total Bilirubin 1.5 mg/dL (0.2-1.0) H Urinalysis Test 01/26/25 11:28 Urine Color Light-yellow (Yellow) Urine Clarity Clear (Clear) Urine pH 5.5 (5.0-9.0) Urine Specific [place] 1.008 (1.001-1.035) Urine Protein 1+ (Negative) H Urine Ketones Negative (Negative) Urine Blood Negative /uL (Negative) Urine Nitrite Negative (Negative) Urine Bilirubin Negative (Negative) Urine Urobilinogen Normal mg/dL (Negative) Urine Leukocyte Esterase Negative /uL (Negative) Urine RBC <1 /hpf (0 - 3) Urine Microscopic WBC 1 /HPF (0-3) Urine Squamous Epithelial Cells Few /hpf (<5) Urine Bacteria None seen /hpf (None Seen) Urine Hyaline Casts Few /lpf (0 - 2) Urine Mucus Few (None Seen) Urine Glucose Normal mg/dL (Normal) Assessment/Plan Assessment/Plan NSTEMI-II- Cardio Cx Acute Systolic CHF Exacerbation- Lasix Acute Resp Failure- Titrate oxygen down Hypertensive urgency- Monitor and adjust meds as needed Hyperlipidemia- Statins Acute kidney injury due to ???- Monitor Type 2 diabetes mellitus, uncontrolled (Hgb A1c 8.3%) 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
--- NOTE | 2025-01-27 17:22 | DVHSR ---
APPROVED REPORT EXAM: Two-dimensional and M-mode echocardiogram with Doppler and color Doppler. Blood Pressure: 129/79 mmHg INDICATION EF RISK FACTORS Height: 67, Weight: 283 DIMENSIONS LVDd6.4 (3.8-5.7cm)LA (2D)4.9 (1.9-4.0cm)Aortic Root3.8 (2.0-3.7cm) LVDs5.8 (2.5-4.0cm)LA (MM) (1.9-4.0cm)Aortic Cusp Exc2.0 (1.5-2.0cm) EF (%) 20.0 (55-70%)Rt. Atrium5.1 (1.9-4.0cm)Asc. Aorta3.5 cm IVSd1.7 (0.7-1.1cm)RV (D) (1.8-2.4cm) PWd2.0 (0.7-1.1cm) Mitral Valve MitralMitral Stenosis E wave1.48m/sMV Mean GR.mmHg A wavem/sMV Peak GR.143mmHg E/A ratio0.02D MVAcm2 Aortic Valve Aortic ValveAortic Stenosis V10.88m/Trip Mean GR.3mmHg V21.18m/Trip Peak GR.6mmHg LVOT Diameter2.5 (1.8-2.4cm)Doppler AVA3.66cm2 AI P 1/2 Jtfw698.64ms Pulmonic Valve V20.78m/s Tricuspid Valve TR Velocity2.35m/s [id number] Conclusion Technically good study. Sinus rhythm. Biventricular and biatrial enlargement. Aortic root enlargement. Mild mitral annular calcification. The aortic tricuspid and pulmonic or structurally normal. Left ventricular systolic performance is diminished. EF is approximately 20-25% with severe global h ypokinesis. Gzlt-al-zplvmlde mitral insufficiency with mild aortic insufficiency and moderate tricuspid regurgita tion. No pericardial effusion masses or vegetations.
--- NOTE | 2025-01-27 17:35 | DVHPN2 ---
Consult Progress Note Subjective Other Systems: Patient remains in normal sinus rhythm on cardiac nurse specialist at time of assessment Objective vital signs Vital Sign Date Time Temp Pulse Resp B/P (MAP) Pulse Ox O2 Delivery O2 Flow Rate FiO2 01/27/25 16:59 98.5 85 17 147/94 (111) 97 98.5 01/27/25 08:00 Nasal Cannula* 2 28 Total Intake and Output 01/26/25 01/26/25 01/27/25 15:00 23:00 07:00 Intake Total 360 ml 380 ml Output Total 1200 ml Balance 360 ml -820 ml medications Current Medications Medications Dose Ordered Sig/Alba Route Start Time Stop Time Status Last Admin Dose Admin Hydralazine HCl 10 mg Q6HP PRN IV 01/26/25 01:00 01/27/25 14:29 10 MG Atorvastatin Calcium 20 mg HS PO 01/26/25 22:00 01/26/25 22:12 20 MG Diagnostic Test (Pha) 1 strip ACHS 01/26/25 07:00 01/27/25 13:23 1 STRIP Insulin Human Regular ACHS SC 01/26/25 07:00 01/27/25 13:28 4 UNITS Dextrose 50 ml UD PRN IV 01/26/25 01:00 Ondansetron HCl 4 mg Q4HP PRN IV 01/26/25 01:00 Acetaminophen 650 mg Q6HP PRN PO 01/26/25 01:00 Nitroglycerin 0.4 mg Q5MINP PRN SL 01/26/25 01:00 Morphine Sulfate 2 mg Q30M PRN IV 01/26/25 01:00 Furosemide 40 mg BIDD IV 01/26/25 06:00 01/27/25 05:06 40 MG Aspirin 81 mg DAILY PO 01/26/25 10:00 01/27/25 08:56 81 MG Carvedilol 12.5 mg Q12HR PO 01/27/25 22:00 Sacubitril/ Valsartan 2 tab BID PO 01/27/25 22:00 Examination: GENERAL:Normal, LUNGS:Normal, CVS:Normal, NEURO:Normal laboratory and microbiology Laboratory Tests 01/27/25 05:34 Test 01/27/25 05:34 Range/Units Serum Glucose 125 H 74-106 mg/dL Problem List/Assessment/Plan Problem List/Assessment/Plan Acute on chronic decompensated HFrEF, NYHA class III Hypertensive urgency, resolved NSTEMI, rule out coronary ischemia Hyperlipidemia Moderate tricuspid regurgitation Acute kidney injury Type 2 diabetes mellitus, uncontrolled (Hgb A1c 8.3%) Morbid obesity Medical noncompliance Plan/Recommendations (Dr. Kong): * Transthoracic echocardiogram reveals EF 20-25% with severe global hypokinesis * Initiate guideline directed medical therapy for CHF as tolerated * Strict intake and output, daily weight, maintain fluid restriction * Aggressive BP control as tolerated * Preload and afterload reduction * Close Cardiac surveillance * Risk factor modifications, counseled * Adherence to medication regimen * Dietary and lifestyle changes * Nuclear stress test Case discussed with . The patient denies any previous ischemic workup. Given reduced ejection fraction, will proceed with a nuclear stress test to rule out coronary ischemia. In the meantime, continue with guideline directed medical therapy for CHF as tolerated. Thank you for allowing us to care for this patient. Please call with any questions or concerns. This medical document was created using an electronic medical record system with voice recognition software and computerized dictation system. Although this document has been carefully reviewed, there might still be some phonetic and typographical errors. Occasional wrong-word or ``sound-alike substitutions may have occurred due to the inherent limitations of voice recognition software. These areas are purely typographical due to imperfections of the software programs and do not reflect any compromise in the patient's medical care. Please read the chart carefully and recognize, using context, where these substitutions have occurred. Plan discussed with: Patient Date of Service: Jan 27, 2025 Billing Provider: MARIA E ALMONTE Common Visit Codes: [id number] INP/OBS CARE(HIGH) MARIA E ALMONTE Jan 27, 2025 17:35
[2025-01-27] MEDS: CARVEDILOL 3.125 MG TAB PO SCH (21:25)
[2025-01-27] MEDS: SACUBITRIL-VALSARTAN 24mg/26mg TAB PO SCH (21:27)
[2025-01-27] MEDS: ACETAMINOPHEN 325 MG TAB PO PRN (21:28)
[2025-01-28] VITALS (8 sets, daily range): BP systolic 136–156; BP diastolic 88–95; PULSE 70–82; RESP 17–18; TEMP 97.8–98.6; O2SAT 94–98
[2025-01-28 06:10] LABS: Anion Gap 11 (5-15); Calcium 9.1 mg/dL (8.7-10.4); Carbon Dioxide 31 mmol/L (20-31); Chloride 98 mmol/L (98-107); Sodium 140 mmol/L (136-145)
[2025-01-28 06:15] LABS: Potassium 3.3 mmol/L (3.5-5.1)
[2025-01-28 06:16] LABS: BUN/Creatinine Ratio 13.6 (10.0-20.0); Blood Urea Nitrogen 14 mg/dL (9-23); Glucose 121 mg/dL (74-106)
[2025-01-28] MEDS: REGADENOSON 0.4 MG/5 ML SYRG IV ONE ×2 (09:33→09:34)
[2025-01-28] MEDS: SPIRONOLACTONE 25 MG TAB PO SCH (10:39)
[2025-01-28] MEDS: EMPAGLIFLOZIN 10 MG TAB PO SCH (10:40)
[2025-01-28] MEDS: POTASSIUM CHL 20 Meq TABLET PO ONE (12:21)
--- NOTE | 2025-01-28 12:57 | DVHPN2 ---
Subjective Seen and examined at bedside, On 3L oxygen. Adjust BP meds. Attempt to titrate oxygen down. Stress test today Changes from previous H/P or p: No Changes Objective Vitals Vital Signs Date Time Temp Pulse Resp B/P (MAP) Pulse Ox O2 Delivery O2 Flow Rate FiO2 01/28/25 10:41 72 155/88 01/28/25 08:20 17 94 Nasal Cannula* 2 28 01/28/25 05:00 97.8 97.8 Intake/Output Intake and Output 01/28/25 07:00 Intake Total 1010 ml Output Total 1125 ml Balance -115 ml Intake Oral 1010 ml Output Urine Total 1125 ml # Bowel Movements 2 General Appearance: Alert, Oriented X3, Cooperative, mild distress Lungs: Other (Diminished) Cardiovascular: Regular rate, Normal S1, Normal S2 Abdomen: Normal bowel sounds, Other (Obese) Rectal: Deferred Extremities: Other (Edema) Psych/Mental Status: Mental status NL Medications Current Medications Medications Dose Ordered Sig/Alba Route Start Time Stop Time Status Last Admin Dose Admin Hydralazine HCl 10 mg Q6HP PRN IV 01/26/25 01:00 01/27/25 14:29 10 MG Atorvastatin Calcium 20 mg HS PO 01/26/25 22:00 01/27/25 21:28 20 MG Diagnostic Test (Pha) 1 strip ACHS 01/26/25 07:00 01/28/25 11:30 1 STRIP Insulin Human Regular ACHS SC 01/26/25 07:00 01/28/25 12:21 4 UNITS Dextrose 50 ml UD PRN IV 01/26/25 01:00 Ondansetron HCl 4 mg Q4HP PRN IV 01/26/25 01:00 Acetaminophen 650 mg Q6HP PRN PO 01/26/25 01:00 01/27/25 21:28 650 MG Nitroglycerin 0.4 mg Q5MINP PRN SL 01/26/25 01:00 Morphine Sulfate 2 mg Q30M PRN IV 01/26/25 01:00 Furosemide 40 mg BIDD IV 01/26/25 06:00 01/28/25 05:29 40 MG Aspirin 81 mg DAILY PO 01/26/25 10:00 01/28/25 10:40 81 MG Carvedilol 12.5 mg Q12HR PO 01/27/25 22:00 01/28/25 10:41 12.5 MG Sacubitril/ Valsartan 2 tab BID PO 01/27/25 22:00 01/28/25 10:39 2 TAB Spironolactone 25 mg DAILY PO 01/28/25 10:00 01/28/25 10:39 25 MG Empaglifozin 10 mg DAILY PO 01/28/25 10:00 01/28/25 10:40 10 MG Laboratory Results Laboratory Tests 01/27/25 05:34 01/28/25 04:48 Chemistry Test 01/28/25 04:48 Calcium Level 9.1 mg/dL (8.7-10.4) Magnesium Level 2.0 mg/dL (1.6-2.6) Urinalysis Test 01/26/25 11:28 Urine Color Light-yellow (Yellow) Urine Clarity Clear (Clear) Urine pH 5.5 (5.0-9.0) Urine Specific [place] 1.008 (1.001-1.035) Urine Protein 1+ (Negative) H Urine Ketones Negative (Negative) Urine Blood Negative /uL (Negative) Urine Nitrite Negative (Negative) Urine Bilirubin Negative (Negative) Urine Urobilinogen Normal mg/dL (Negative) Urine Leukocyte Esterase Negative /uL (Negative) Urine RBC <1 /hpf (0 - 3) Urine Microscopic WBC 1 /HPF (0-3) Urine Squamous Epithelial Cells Few /hpf (<5) Urine Bacteria None seen /hpf (None Seen) Urine Hyaline Casts Few /lpf (0 - 2) Urine Mucus Few (None Seen) Urine Glucose Normal mg/dL (Normal) Assessment/Plan Assessment/Plan NSTEMI-II- Cardio Cx Acute Systolic CHF Exacerbation- Lasix Acute Resp Failure- Titrate oxygen down Hypertensive urgency- Monitor and adjust meds as needed Hyperlipidemia- Statins Acute kidney injury due to ???- Monitor Type 2 diabetes mellitus, uncontrolled (Hgb A1c 8.3%) 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
[2025-01-28] MEDS: guaiFENesin-DM 100/10mg/5ml SYR PO PRN (23:12)
[2025-01-29] VITALS (8 sets, daily range): BP systolic 119–159; BP diastolic 82–100; PULSE 59–97; RESP 17–20; TEMP 97.8–98.4; O2SAT 93–97
[2025-01-29 07:31] LABS: Chloride 99 mmol/L (98-107); Potassium 3.7 mmol/L (3.5-5.1); Sodium 143 mmol/L (136-145)
[2025-01-29 07:32] LABS: Anion Gap 11 (5-15); Calcium 9.8 mg/dL (8.7-10.4)
[2025-01-29 07:33] LABS: Carbon Dioxide 33 mmol/L (20-31)
[2025-01-29 07:37] LABS: BUN/Creatinine Ratio 16.8 (10.0-20.0); Blood Urea Nitrogen 18 mg/dL (9-23)
[2025-01-29 07:50] LABS: Glucose 109 mg/dL (74-106)
--- NOTE | 2025-01-29 07:54 | DVH ---
EXAM: XR Chest, 1 View CLINICAL INDICATION: CHF TECHNIQUE: Frontal view of the chest. COMPARISON: XY CHEST XRAY 1 VIEW on DOS: 01/25/25 FINDINGS: LUNGS AND PLEURAL SPACES: See below. HEART: Cardiomegaly with mild congestion. MEDIASTINUM: Unremarkable. Normal mediastinal contour. BONES/JOINTS: Unremarkable. No acute fracture. OTHER FINDINGS: . IMPRESSION: Cardiomegaly with mild congestion.
[2025-01-29 08:49] LABS: Magnesium 1.9 mg/dL (1.6-2.6)
--- NOTE | 2025-01-29 12:11 | DVHPN2 ---
Subjective covering had cough, unlikely infection. no active chest pain Changes from previous H/P or p: No Changes Objective Vitals Vital Signs Date Time Temp Pulse Resp B/P (MAP) Pulse Ox O2 Delivery O2 Flow Rate FiO2 01/29/25 10:25 74 01/29/25 09:25 149/82 01/29/25 08:37 98.1 20 95 98.1 01/29/25 08:05 Nasal Cannula* 2 28 Intake/Output Intake and Output 01/29/25 07:00 Intake Total 1050 ml Output Total 2000 ml Balance -950 ml Intake Oral 1050 ml Output Urine Total 2000 ml General Appearance: Alert, Oriented X3, Cooperative, mild distress Lungs: Other (Diminished) Cardiovascular: Regular rate, Normal S1, Normal S2 Abdomen: Normal bowel sounds, Other (Obese) Rectal: Deferred Extremities: Other (Edema) Psych/Mental Status: Mental status NL Medications Current Medications Medications Dose Ordered Sig/Alba Route Start Time Stop Time Status Last Admin Dose Admin Hydralazine HCl 10 mg Q6HP PRN IV 01/26/25 01:00 01/27/25 14:29 10 MG Atorvastatin Calcium 20 mg HS PO 01/26/25 22:00 01/28/25 21:29 20 MG Diagnostic Test (Pha) 1 strip ACHS 01/26/25 07:00 01/29/25 06:13 1 STRIP Insulin Human Regular ACHS SC 01/26/25 07:00 01/29/25 06:19 2 UNITS Dextrose 50 ml UD PRN IV 01/26/25 01:00 Ondansetron HCl 4 mg Q4HP PRN IV 01/26/25 01:00 Acetaminophen 650 mg Q6HP PRN PO 01/26/25 01:00 01/27/25 21:28 650 MG Nitroglycerin 0.4 mg Q5MINP PRN SL 01/26/25 01:00 Morphine Sulfate 2 mg Q30M PRN IV 01/26/25 01:00 Furosemide 40 mg BIDD IV 01/26/25 06:00 01/29/25 06:13 40 MG Aspirin 81 mg DAILY PO 01/26/25 10:00 01/29/25 09:24 81 MG Carvedilol 12.5 mg Q12HR PO 01/27/25 22:00 01/29/25 09:25 12.5 MG Sacubitril/ Valsartan 2 tab BID PO 01/27/25 22:00 01/29/25 09:24 2 TAB Spironolactone 25 mg DAILY PO 01/28/25 10:00 01/29/25 09:24 25 MG Empaglifozin 10 mg DAILY PO 01/28/25 10:00 01/29/25 09:24 10 MG Guaifenesin/ Dextromethorphan 10 ml Q6HR PRN PO 01/28/25 22:15 01/28/25 23:12 10 ML Laboratory Results Laboratory Tests 01/27/25 05:34 01/29/25 05:42 Chemistry Test 01/29/25 05:42 Calcium Level 9.8 mg/dL (8.7-10.4) Magnesium Level 1.9 mg/dL (1.6-2.6) Urinalysis Test 01/26/25 11:28 Urine Color Light-yellow (Yellow) Urine Clarity Clear (Clear) Urine pH 5.5 (5.0-9.0) Urine Specific [place] 1.008 (1.001-1.035) Urine Protein 1+ (Negative) H Urine Ketones Negative (Negative) Urine Blood Negative /uL (Negative) Urine Nitrite Negative (Negative) Urine Bilirubin Negative (Negative) Urine Urobilinogen Normal mg/dL (Negative) Urine Leukocyte Esterase Negative /uL (Negative) Urine RBC <1 /hpf (0 - 3) Urine Microscopic WBC 1 /HPF (0-3) Urine Squamous Epithelial Cells Few /hpf (<5) Urine Bacteria None seen /hpf (None Seen) Urine Hyaline Casts Few /lpf (0 - 2) Urine Mucus Few (None Seen) Urine Glucose Normal mg/dL (Normal) Assessment/Plan Assessment/Plan NSTEMI-II- pending MPI result Acute Systolic CHF Exacerbation- Lasix Acute Resp Failure- Titrate oxygen down Hypertensive urgency- Monitor and adjust meds as needed Hyperlipidemia- Statins Acute kidney injury due to hemodynamic mediated- Monitor Type 2 diabetes mellitus, uncontrolled (Hgb A1c 8.3%) Morbid obesity- 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
[2025-01-29] MEDS: FUROSEMIDE 20 MG TAB PO SCH (18:19)
--- NOTE | 2025-01-29 20:43 | DVHOP ---
DATE OF SURGERY: 01/28/2025 TECHNIQUE PERFORMED: Adenosine Cardiolite stress test. DESCRIPTION OF PROCEDURE: The baseline EKG reveals normal sinus rhythm, left anterior hemiblock, clockwise rotation of the heart, and no acute EKG changes. The patient underwent a resting scan by giving internal Cardiolite with the help of the SPECT camera. Different images of the left ventricle were obtained which include long axis, short axis and horizontal axial view. The patient was given intravenous adenosine. Subsequently, the stress imaging was done. Stress and rest images both have been compared. There is underlying dilated left ventricle during the resting scan and also after giving IV adenosine, there is no perfusion defect. The ejection fraction of the left ventricle is in the range of only 28%. CONCLUSION: * No evidence of myocardial perfusion defect. * Left ventricle is significantly dilated. * Left ventricular ejection fraction is moderately reduced and is in the range of only 28% distally consistent with dilated cardiomyopathy. Woo Fritz MD MP/JUSTYNA/KARIE TID: [id number] RECEIPT: [id number]
[2025-01-29] MEDS: CARVEDILOL 3.125 MG TAB PO SCH (21:33)
[2025-01-30] VITALS (7 sets, daily range): BP systolic 141–160; BP diastolic 79–93; PULSE 63–72; RESP 20–22; TEMP 97.5–98.7; O2SAT 93–96
[2025-01-30] MEDS: cloNIDine HCL 0.1 MG TAB PO PRN (05:10)
[2025-01-30 06:26] LABS: Basophils # (auto) 0.1 10 ^3/uL (0-0.2); Basophils % (auto) 0.6 % (0.0-2.0); Eosinophils # (auto) 0.1 10 ^3/uL (0-0.8); Eosinophils % (auto) 0.9 % (0.0-7.0); Hematocrit 44.2 % (41.0-53.0); Hemoglobin 14.7 g/dL (13.5-17.5); Lymphocytes # (auto) 1.7 10 ^3/uL (0.4-5.4); Lymphocytes % (auto) 12.4 % (10.0-50.0); Mean Corpuscular Hemoglobin 28.3 pg (28.0-32.0); Mean Corpuscular Hgb Conc. 33.3 g/dL (32.0-36.0); Mean Corpuscular Volume 84.9 fL (80.0-100.0); Monocytes # (auto) 1.4 10 ^3/uL (0-1.3); Monocytes % (auto) 9.9 % (0.0-12.0); Neutrophils # (auto) 10.6 10 ^3/uL (1.6-8.6); Neutrophils % (auto) 76.2 % (37.0-80.0); Nucleated Red Blood Cells % 0.1 %; Platelet Count (auto) 269 10^3/uL (140-450); White Blood Cell 13.9 10^3/uL (4.4-10.8)
[2025-01-30 06:35] LABS: Anion Gap 10 (5-15); Chloride 98 mmol/L (98-107); Sodium 141 mmol/L (136-145)
[2025-01-30 06:37] LABS: Calcium 9.8 mg/dL (8.7-10.4)
[2025-01-30 06:38] LABS: Carbon Dioxide 33 mmol/L (20-31); Potassium 3.1 mmol/L (3.5-5.1)
[2025-01-30 06:41] LABS: BUN/Creatinine Ratio 15.7 (10.0-20.0); Blood Urea Nitrogen 17 mg/dL (9-23)
[2025-01-30 06:49] LABS: Glucose 114 mg/dL (74-106)
--- NOTE | 2025-01-30 08:19 | DVHPN2 ---
Consult Progress Note Subjective Patient reports: No new complaints, Feels better Objective vital signs Vital Sign Date Time Temp Pulse Resp B/P (MAP) Pulse Ox O2 Delivery O2 Flow Rate FiO2 01/30/25 08:10 72 20 96 Nasal Cannula* 2 28 01/30/25 06:17 145/87 01/30/25 05:00 98.7 98.7 Total Intake and Output 01/29/25 01/29/25 01/30/25 15:00 23:00 07:00 Intake Total 240 ml 720 ml 1180 ml Output Total 1200 ml Balance 240 ml -480 ml 1180 ml medications Current Medications Medications Dose Ordered Sig/Alba Route Start Time Stop Time Status Last Admin Dose Admin Atorvastatin Calcium 20 mg HS PO 01/26/25 22:00 01/29/25 21:31 20 MG Diagnostic Test (Pha) 1 strip ACHS 01/26/25 07:00 01/30/25 05:58 1 STRIP Insulin Human Regular ACHS SC 01/26/25 07:00 01/29/25 21:42 4 UNITS Dextrose 50 ml UD PRN IV 01/26/25 01:00 Ondansetron HCl 4 mg Q4HP PRN IV 01/26/25 01:00 Acetaminophen 650 mg Q6HP PRN PO 01/26/25 01:00 01/27/25 21:28 650 MG Nitroglycerin 0.4 mg Q5MINP PRN SL 01/26/25 01:00 Morphine Sulfate 2 mg Q30M PRN IV 01/26/25 01:00 Aspirin 81 mg DAILY PO 01/26/25 10:00 01/29/25 09:24 81 MG Sacubitril/ Valsartan 2 tab BID PO 01/27/25 22:00 01/29/25 21:33 2 TAB Spironolactone 25 mg DAILY PO 01/28/25 10:00 01/29/25 09:24 25 MG Empaglifozin 10 mg DAILY PO 01/28/25 10:00 01/29/25 09:24 10 MG Guaifenesin/ Dextromethorphan 10 ml Q6HR PRN PO 01/28/25 22:15 01/30/25 00:09 10 ML Carvedilol 25 mg Q12HR PO 01/29/25 22:00 01/29/25 21:33 25 MG Furosemide 80 mg BIDD PO 01/29/25 18:00 01/30/25 06:17 80 MG Clonidine HCl 0.1 mg Q4HP PRN PO 01/30/25 04:55 01/30/25 05:10 0.1 MG Examination: CVS:Normal laboratory and microbiology Laboratory Tests 01/30/25 05:15 Test 01/30/25 05:15 Range/Units Serum Glucose 114 H 74-106 mg/dL Problem List/Assessment/Plan Problem List/Assessment/Plan Problem List/Assessment/Plan Acute on chronic decompensated HFrEF, NYHA class III Non-ischemic cardiomyopathy Hypertensive urgency, resolved NSTEMI, rule out coronary ischemia Hyperlipidemia Moderate tricuspid regurgitation Acute kidney injury Type 2 diabetes mellitus, uncontrolled (Hgb A1c 8.3%) Morbid obesity Medical noncompliance Plan/Recommendations (Dr. Kong): 01/30/25 -- a 49-year-old male with history of chronic heart failure with HFrEF previously estimated between 20-25%, underwent a nuclear test. The results showed no evidence of myocardial perfusion defects. However, the left ventricle was significantly dilated, and the left ventricle ejection fraction was severely reduced, measured at approximately 28%, consistent with dilated cardiomyopathy. The patient should continue GDM T for heart failure and follow-up with Cardiology for further management and optimization of treatment. Plan discussed with: Patient Dietary Evaluation Review Comments: 1) Change 2g Na diet to 60g CCHO cardiac diet 2) Encourage optimal PO intake 3) Refer to outpatient RD/CDCES for diabetes education and weight management 4) Follow-up with cardiology and nephrology 5) Continue to monitor I&O, labs, and skin integrity Expected Outcomes/Goals: 1) appetite and labs to improve 2) f/u in 3-5 days Date of Service: Jan 30, 2025 Billing Provider: DAWSON KONG Sr., MD Common Visit Codes: CONSULT ONLY Consultation Codes: [id number] CONSULT <45MIN ALINA FAROOQ Jan 30, 2025 08:19
[2025-01-30] MEDS ORDERED: SACU1TAB PO (13:28)
[2025-01-30] MEDS ORDERED: CARV-214 PO (13:28)
[2025-01-30] MEDS ORDERED: EMPA1TAB PO (13:28)
[2025-01-30] MEDS ORDERED: FURO20TA4 PO (13:28)
[2025-01-30] MEDS ORDERED: ATOR20TA50 PO (13:28)
[2025-01-30] MEDS ORDERED: SPIR25TA PO (13:28)
[2025-01-30] MEDS ORDERED: ASPI-325 PO (13:28)
--- NOTE | 2025-01-30 13:29 | DVHDS2 ---
Discharge Summary Date of Admission Jan 26, 2025 at 00:54 Date of Discharge: Jan 30, 2025 Labs/Diagnostic Data: Laboratory Results Test 01/30/25 11:11 01/30/25 05:15 01/29/25 05:42 01/27/25 05:34 POC Glucose 205 mg/dl (70-106) White Blood Count 13.9 10^3/uL (4.4-10.8) Red Blood Count 5.20 10^6/uL (4.5-5.90) Hemoglobin 14.7 g/dL (13.5-17.5) Hematocrit 44.2 % (41.0-53.0) Mean Corpuscular Volume 84.9 fL (80.0-100.0) Mean Corpuscular Hemoglobin 28.3 pg (28.0-32.0) Mean Corpuscular Hemoglobin Concent 33.3 g/dL (32.0-36.0) Red Cell Distribution Width 14.0 % (11.8-14.3) Platelet Count 269 10^3/uL (140-450) Mean Platelet Volume 10.7 fL (6.9-10.8) Neutrophils (%) (Auto) 76.2 % (37.0-80.0) Lymphocytes (%) (Auto) 12.4 % (10.0-50.0) Monocytes (%) (Auto) 9.9 % (0.0-12.0) Eosinophils (%) (Auto) 0.9 % (0.0-7.0) Basophils (%) (Auto) 0.6 % (0.0-2.0) Neutrophils # (Auto) 10.6 10 ^3/uL (1.6-8.6) Lymphocytes # (Auto) 1.7 10 ^3/uL (0.4-5.4) Monocytes # (Auto) 1.4 10 ^3/uL (0-1.3) Eosinophils # (Auto) 0.1 10 ^3/uL (0-0.8) Basophils # (Auto) 0.1 10 ^3/uL (0-0.2) Nucleated Red Blood Cells 0.1 % Sodium Level 141 mmol/L (136-145) Potassium Level 3.1 mmol/L (3.5-5.1) Chloride Level 98 mmol/L (98-107) Carbon Dioxide Level 33 mmol/L (20-31) Anion Gap 10 (5-15) Blood Urea Nitrogen 17 mg/dL (9-23) Creatinine 1.08 mg/dL (0.700-1.30) Glomerular Filtration Rate Calc 84 mL/min (>90) BUN/Creatinine Ratio 15.7 (10.0-20.0) Serum Glucose 114 mg/dL (74-106) Calcium Level 9.8 mg/dL (8.7-10.4) Magnesium Level 1.9 mg/dL (1.6-2.6) Total Bilirubin 1.5 mg/dL (0.2-1.0) Aspartate Amino Transferase (AST) 15 U/L (<34) Alanine Aminotransferase (ALT) 12 U/L (7-40) Alkaline Phosphatase 64 U/L (46-116) Total Protein 7.1 g/dL (5.7-8.2) Albumin 4.2 g/dL (3.2-4.8) Test 01/26/25 11:28 01/26/25 00:05 01/25/25 21:04 Urine Color Light-yellow (Yellow) Urine Clarity Clear (Clear) Urine pH 5.5 (5.0-9.0) Urine Specific Willet 1.008 (1.001-1.035) Urine Protein 1+ (Negative) Urine Ketones Negative (Negative) Urine Blood Negative /uL (Negative) Urine Nitrite Negative (Negative) Urine Bilirubin Negative (Negative) Urine Urobilinogen Normal mg/dL (Negative) Urine Leukocyte Esterase Negative /uL (Negative) Urine RBC <1 /hpf (0 - 3) Urine Microscopic WBC 1 /HPF (0-3) Urine Squamous Epithelial Cells Few /hpf (<5) Urine Bacteria None seen /hpf (None Seen) Urine Hyaline Casts Few /lpf (0 - 2) Urine Mucus Few (None Seen) Urine Glucose Normal mg/dL (Normal) Urine Opiates Screen Neg (NEGATIVE) Urine Fentanyl Screen Neg (NEGATIVE) Urine Barbiturates Screen Neg (NEGATIVE) Urine Phencyclidine Screen Neg (NEGATIVE) Urine Amphetamines Screen Neg (NEGATIVE) Urine Benzodiazepines Screen Neg (NEGATIVE) Urine Cocaine Screen Neg (NEGATIVE) Urine Cannabinoids Screen Neg (NEGATIVE) Troponin I High Sensitivity 475 ng/L (</=54) Triglycerides Level 120 mg/dL (< 150) Cholesterol Level 107 mg/dL (< 200) LDL Cholesterol 49 mg/dL (< 100) HDL Cholesterol 41 mg/dL (40-59) Thyroid Stimulating Hormone (TSH) 0.94 uIU/mL (0.55-4.78) Hemoglobin A1c 8.3 % A1C (<5.7) B-Type Natriuretic Peptide 908.92 pg/mL (0-100) Other Laboratory Tests 01/30/25 05:15 Brief Hx & Hospital Course: 49 M with SOB and edema admitted for NSTEMI and HFrEF exacerbation. Reported off meds for a bit due to running out, with elevated BP. seen by cardio, echo showed E 20-25%. did nuclear stress test with no evidence of perfusion defects. restarted on GDMT and diuresed. now stable to [place]. follow up outpatient. dc clinic and cardio clinic Condition at Discharge: Good Final Diagnosis/Problems List Acute on chronic decompensated HFrEF, NYHA class III Non-ischemic cardiomyopathy Hypertensive urgency, resolved NSTEMI, rule out coronary ischemia Hyperlipidemia Moderate tricuspid regurgitation Acute kidney injury Type 2 diabetes mellitus, uncontrolled (Hgb A1c 8.3%) Morbid obesity Medical noncompliance Discharge Disposition: Home Discharge Instruct/Medications Diet: Consistent carbohydrate, Cardiac 2g Na,low cholest Activity: No Restrictions, As Tolerated Medications: entresto jardiance as lipitor coreg aldactone Discharge Statement: "Patient was advised to return to the ER or call 911 if any headaches, dizziness, shortness of breath, chest pain, abdominal pain, bleeding, fevers, or worsening of medical condition. Patient was counseled about treatment plan, medications, possible side effects, patientverbalized understanding. All questions were answered to the best of my ability. This discharge took greater then 30 minutes in planning, reviewing documentation, counseling the patient, and discussing with other team members." ASSESSMENT ASSESSMENT Assessment HFrEF Date of Service: Jan 30, 2025 Billing Provider: DELMY THURMAN MD Common Visit Codes: [id number] DISCH DAY >30min DELMY THURMAN MD Jan 30, 2025 13:29
--- NOTE | 2025-01-30 22:58 | DVHPN2 ---
Consult Progress Note Subjective Other Systems: Patient was seen and evaluated in follow up. No new complaints. Patient feels better today. WBC 13.9, K 3.1, CO2 33, GLUC 205. Telemetry reviewed. Objective vital signs Vital Sign Date Time Temp Pulse Resp B/P (MAP) Pulse Ox O2 Delivery O2 Flow Rate FiO2 01/30/25 14:09 97.7 63 20 94 01/30/25 13:00 141/79 (99) 01/30/25 08:10 Nasal Cannula* 2 28 Total Intake and Output 01/29/25 01/29/25 01/30/25 15:00 23:00 07:00 Intake Total 240 ml 720 ml 1180 ml Output Total 1200 ml Balance 240 ml -480 ml 1180 ml medications Current Medications Medications Dose Ordered Sig/Alba Route Start Time Stop Time Status Last Admin Dose Admin Atorvastatin Calcium 20 mg HS PO 01/26/25 22:00 01/29/25 21:31 20 MG Diagnostic Test (Pha) 1 strip ACHS 01/26/25 07:00 01/30/25 11:40 1 STRIP Insulin Human Regular ACHS SC 01/26/25 07:00 01/30/25 11:32 4 UNITS Dextrose 50 ml UD PRN IV 01/26/25 01:00 Ondansetron HCl 4 mg Q4HP PRN IV 01/26/25 01:00 Acetaminophen 650 mg Q6HP PRN PO 01/26/25 01:00 01/27/25 21:28 650 MG Nitroglycerin 0.4 mg Q5MINP PRN SL 01/26/25 01:00 Morphine Sulfate 2 mg Q30M PRN IV 01/26/25 01:00 Aspirin 81 mg DAILY PO 01/26/25 10:00 01/30/25 09:35 81 MG Sacubitril/ Valsartan 2 tab BID PO 01/27/25 22:00 01/30/25 09:34 2 TAB Spironolactone 25 mg DAILY PO 01/28/25 10:00 01/30/25 09:35 25 MG Empaglifozin 10 mg DAILY PO 01/28/25 10:00 01/30/25 09:39 10 MG Guaifenesin/ Dextromethorphan 10 ml Q6HR PRN PO 01/28/25 22:15 01/30/25 00:09 10 ML Carvedilol 25 mg Q12HR PO 01/29/25 22:00 01/30/25 09:38 25 MG Furosemide 80 mg BIDD PO 01/29/25 18:00 01/30/25 06:17 80 MG Clonidine HCl 0.1 mg Q4HP PRN PO 01/30/25 04:55 01/30/25 05:10 0.1 MG Examination: GENERAL:Normal, HEENT:Normal, NECK:Normal, LUNGS:Normal, CVS:Normal, ABDOMEN:Normal laboratory and microbiology Laboratory Tests 01/30/25 05:15 Test 01/30/25 05:15 Range/Units Serum Glucose 114 H 74-106 mg/dL Problem List/Assessment/Plan Problem List/Assessment/Plan Problem List/Assessment/Plan Acute on chronic decompensated HFrEF, NYHA class III. Non-ischemic cardiomyopathy. Hypertensive urgency, resolved. NSTEMI, rule out coronary ischemia. Hyperlipidemia. Moderate tricuspid regurgitation. Acute kidney injury. Type 2 diabetes mellitus, uncontrolled (Hgb A1c 8.3%). Morbid obesity. Medical noncompliance. Plan/Recommendations Continued all current supportive medical care. Patient has been seen by Briana Goldman NP on my behalf, her and I discussed the plan with the patient. A 49-year-old male with history of chronic heart failure with HFrEF previously estimated between 20-25%, underwent a nuclear test. The results showed no evidence of myocardial perfusion defects. However, the left ventricle was significantly dilated, and the left ventricle ejection fraction was severely reduced, measured at approximately 28%, consistent with dilated cardiomyopathy. The patient should continue GDMT for heart failure and follow-up with Cardiology for further management and optimization of treatment. Additional plan as per the hospital course. Plan discussed with: Patient Dietary Evaluation Review Comments: 1) Change 2g Na diet to 60g CCHO cardiac diet 2) Encourage optimal PO intake 3) Refer to outpatient RD/CDCES for diabetes education and weight management 4) Follow-up with cardiology and nephrology 5) Continue to monitor I&O, labs, and skin integrity Expected Outcomes/Goals: 1) appetite and labs to improve 2) f/u in 3-5 days Date of Service: Jan 30, 2025 Billing Provider: PAUL FRANK MD Cardiology Common Codes: [id number] INP/OBS CARE (High) Cardiology Consultation Codes: [id number] CONSULT <45MIN PAUL FRANK MD Jan 30, 2025 14:24
== END 2025-01-30 16:18 | disposition home or self-care (01) | DRG 280 ==
LOC: ER 19:53 → OVERFLOW 01-26 00:54 → TELE-CENTR 01-26 11:22
PROVIDERS: ADMIT Internal Medicine; ATTEND Internal Medicine
DX: I11.0 Hypertensive heart disease with heart failure (principal); I50.23 Acute on chronic systolic (congestive) heart failure; I21.A1 Myocardial infarction type 2; J96.00 Acute respiratory failure, unspecified whether with hypoxia or hypercapnia; N17.9 Acute kidney failure, unspecified; Z68.41 Body mass index [BMI] 40.0-44.9, adult; I42.0 Dilated cardiomyopathy; I16.0 Hypertensive urgency; E66.01 Morbid (severe) obesity due to excess calories; I07.1 Rheumatic tricuspid insufficiency; E11.9 Type 2 diabetes mellitus without complications; E78.5 Hyperlipidemia, unspecified; N40.0 Benign prostatic hyperplasia without lower urinary tract symptoms; Z91.199 Patient's noncompliance with other medical treatment and regimen due to unspecified reason; Z83.3 Family history of diabetes mellitus; Z82.49 Family history of ischemic heart disease and other diseases of the circulatory system; Z88.8 Allergy status to other drugs, medicaments and biological substances
CPT/HCPCS: 36415; 71045; 80048; 80053; 80061; 80307; 81001; 82962; 83036; 83735; 83880; 84443; 84484; 85025; 93005; 93017; 93306; 96374; G0378; J1815

== ENCOUNTER 2025-03-18 06:15 | Outpatient (CLI) | payer OTHER ==
[~2025-03-18 06:15] MED LIST: ASPI-325 PO; ATOR20TA50 PO; CARV-214 PO; DOXA4TAB83 PO; EMPA1TAB PO; FURO20TA4 PO; METF-370 PO; SACU1TAB PO; SPIR25TA PO
[2025-03-18 07:14] LABS: Hemoglobin 17.1 g/dL (13.5-17.5)
[2025-03-18 07:17] LABS: Hematocrit 49.2 % (41.0-53.0); Mean Corpuscular Hemoglobin 28.6 pg (28.0-32.0); Mean Corpuscular Volume 82.2 fL (80.0-100.0); Nucleated Red Blood Cells % 0.2 %
[2025-03-18 07:21] LABS: INR 0.98 (0.9-1.15); Partial Thromboplastin Time 27.4 SEC (24.5-34.5); Prothrombin Time 10.4 sec (9.3-11.8)
[2025-03-18 08:18] LABS: Urine Protein, UAD Negative (Negative)
[2025-03-18 08:29] LABS: Alanine Aminotransferase 16 U/L (7-40); Alkaline Phosphatase 73 U/L (46-116); Anion Gap 12 (5-15); BUN/Creatinine Ratio 11.3 (10.0-20.0); Blood Urea Nitrogen 16 mg/dL (9-23); Calcium 9.4 mg/dL (8.7-10.4); Carbon Dioxide 29 mmol/L (20-31); Chloride 100 mmol/L (98-107); Potassium 3.5 mmol/L (3.5-5.1); Sodium 141 mmol/L (136-145)
[2025-03-18 08:30] LABS: Total Protein 7.5 g/dL (5.7-8.2)
[2025-03-18 08:31] LABS: Albumin 4.6 g/dL (3.2-4.8); Bilirubin, Total 0.7 mg/dL (0.2-1.0)
[2025-03-18 08:35] LABS: Glucose 169 mg/dL (74-106)
== END 2025-03-18 17:00 | disposition home or self-care (01) ==
LOC: LAB 06:15
PROVIDERS: ATTEND Internal Medicine
DX: I11.0 Hypertensive heart disease with heart failure (principal); I50.9 Heart failure, unspecified
CPT/HCPCS: 36415; 80053; 81001; 82043; 82306; 82607; 83036; 84443; 85025; 85610; 85730

== ENCOUNTER 2025-05-16 06:11 | Outpatient (CLI) | payer OTHER ==
[2025-05-16 06:44] LABS: Anion Gap 11 (5-15); Calcium 9.1 mg/dL (8.7-10.4); Carbon Dioxide 26 mmol/L (20-31); Chloride 104 mmol/L (98-107); Potassium 3.7 mmol/L (3.5-5.1); Sodium 141 mmol/L (136-145)
[2025-05-16 06:50] LABS: Blood Urea Nitrogen 10 mg/dL (9-23)
[2025-05-16 06:52] LABS: Glucose 143 mg/dL (74-106)
[2025-05-16 06:57] LABS: BUN/Creatinine Ratio 8.9 (10.0-20.0)
[2025-05-16 07:30] LABS: Protein, Urine 53.5 mg/dL (1-14)
== END 2025-05-16 17:00 | disposition home or self-care (01) ==
LOC: LAB 06:11
PROVIDERS: ATTEND Internal Medicine
DX: I11.0 Hypertensive heart disease with heart failure (principal); I50.9 Heart failure, unspecified
CPT/HCPCS: 36415; 80048; 82043; 82570; 84156; 84300